=== PATIENT | female | born 1965 | race Caucasian/White ===

== ENCOUNTER 2017-08-09 10:26 | Emergency (ER) | payer OTHER ==
--- NOTE | 2017-08-09 10:54 | C.PDOC ---
History Of Present Illness 51 y/o female c/o neck pain, throat pain, and dysphagia for the last 2 days. Pain is with ROM of the neck. pt states "she has difficulty swallowing" Patient reports treating herself with Ampicillin that she had. Denies fever, chills, or Trauma. No weakness or numbness. Time Seen by Provider: 08/09/17 10:37 Chief Complaint (Nursing): ENT Problem History Per: Patient History/Exam Limitations: None Onset/Duration Of Symptoms: Days (2) Current Symptoms Are (Timing): Still Present Severity: Mild Past Medical History Reviewed: Historical Data, Nursing Documentation, Vital Signs Vital Signs: Last Vital Signs Temp 98.0 F 08/09/17 11:40 Pulse 78 08/09/17 11:40 Resp 18 08/09/17 11:40 BP 122/74 08/09/17 11:40 Pulse Ox 99 08/09/17 11:40 - Medical History PMH: Hypercholesterolemia Family History: States: Unknown Family Hx - Social History Hx Alcohol Use: No Hx Substance Use: No - Immunization History Hx Tetanus Toxoid Vaccination: No Hx Influenza Vaccination: No Hx Pneumococcal Vaccination: No Review Of Systems Except As Marked, All Systems Reviewed And Found Negative. Constitutional: Negative for: Fever, Chills, Other (Trauma) ENT: Positive for: Throat Pain, Other (Dysphagia) Musculoskeletal: Positive for: Neck Pain Skin: Negative for: Rash Neurological: Negative for: Weakness, Numbness Physical Exam - Physical Exam Appears: Non-toxic, No Acute Distress Skin: Warm, Dry, No Rash Head: Atraumatic, Normacephalic Eye(s): bilateral: Normal Inspection Oral Mucosa: Moist Throat: Normal, No Erythema Neck: Decreased ROM (Decrease ROM of the neck), No Midline Cervical Tenderness, Paracervical Tenderness, No Step Off Deformity, Supple Chest: Symmetrical Cardiovascular: Rhythm Regular, No Murmur Respiratory: Normal Breath Sounds, No Rales, No Rhonchi, No Wheezing Gastrointestinal/Abdominal: Soft, No Tenderness Extremity: Normal ROM (x4) Neurological/Psych: Oriented x3, Normal Motor, Normal Sensation, Other (No focal deficit) Gait: Steady ED Course And Treatment O2 Sat by Pulse Oximetry: 100 (RA) Pulse Ox Interpretation: Normal Medical Decision Making Medical Decision Making: pt w/o unilateral swelling, stridor, uvula deviation. suspect msk pain, pharyngitis, abscess less likely. pt reports difficulty swallowing water. Plans: * CT neck * Toradol 1200: spoke with pt with administrative support specialist bedside. decadron dosed. requested pt to remain in er for po challenge, and reassessment. pt declines, requesting immediate d/c. does not wish to wait in er for any further w/u. Patient is improving with the neck and throat pain. Patient was instructed to follow up with physician/clinic in 1-2 days for further evaluation and to return if symptoms worsens.. Disposition - Disposition Referrals: Telly Villavicencio MD [Staff Provider] - Disposition: HOME/ ROUTINE Disposition Time: 11:33 Condition: STABLE Additional Instructions: please follow up with your doctor. return to er with worsening symptoms or concerns. Prescriptions: Naproxen 500 mg PO BID PRN #14 tab PRN Reason: Pain, Mild (1-3) Instructions: Cervical Sprain (ED), Dysphagia (ED) Forms: [facility] (Thai), Work Excuse Print Language: HUNGARIAN - Clinical Impression Clinical Impression: Neck pain, Dysphagia - Scribe Statement The provider has reviewed the documentation as recorded by the Scribe kirill watts All medical record entries made by the Scribe were at my direction and personally dictated by me. I have reviewed the chart and agree that the record accurately reflects my personal performance of the history, physical exam, medical decision making, and the department course for this patient. I have also personally directed, reviewed, and agree with the discharge instructions and disposition.
--- NOTE | 2017-08-09 11:28 | CT ---
PROCEDURE: CT NECK WITHOUT CONTRAST HISTORY: dysphagia, neck pain COMPARISON: None. TECHNIQUE: CT of the neck without intravenous contrast. Coronal and sagittal reformats generated. Radiation dose: DLP 466.99 mGy-cm This CT exam was performed using one or more of the following dose reduction techniques: Automated exposure control, adjustment of the mA and/or kV according to patient size, and/or use of iterative reconstruction technique. FINDINGS: NASOPHARYNX: Within normal limits. SUPRAHYOID NECK: The oropharynx, parapharyngeal space and retropharyngeal space are grossly normal in appearance. Evaluation of oral cavity is limited due to extensive dental amalgam artifacts. There is asymmetric enlargement of the left hand 18 tonsil. INFRAHYOID NECK: The larynx, hypopharynx, and supraglottic space are grossly normal in appearance. Vocal cords intact. MASS: No bulky mass. GLANDS: Parotid and submandibular glands unremarkable. Normal size thyroid gland, without nodule. LYMPH NODES: No pathologic lymphadenopathy. CERVICAL SPINE: No fracture or focal lesion. Within normal limits for the patient's age OTHER FINDINGS: There is scattered centrilobular emphysema in the upper lobes. IMPRESSION: This examination is limited in the absence of intravenous contrast. Allowing for this, asymmetric enlargement of the left palatine tonsil likely represents acute tonsillitis. No pathologic lymphadenopathy. Evaluation of peritonsillar abscess is extremely limited due to lack of intravenous contrast. Follow-up CT scan with intravenous contrast after medical management is recommended to evaluate for resolution and exclude underlying mass.
[2017-08-09 11:50] VITALS: BP 122/74; PULSE 78; RESP 18; TEMP 98
[2017-08-09 11:57] VITALS: O2SAT 100
== END 2017-08-09 11:54 | disposition home or self-care (01) ==
LOC: C.ER 10:26
DX: M54.2 Cervicalgia (principal); R13.10 Dysphagia, unspecified
CPT/HCPCS: 70490; 96372; 99283; J1885; J8540